=== PATIENT | male | born 1945 | race Caucasian/White ===

== ENCOUNTER → 2019-02-27 | Outpatient (CLI) | payer MEDICARE ==
--- NOTE | 2019-02-27 09:43 | REP ---
Clinical: Hypertension and chronic medical renal disease. Technique: Sheth scale and color Doppler evaluation of the kidneys and renal vasculature using curved array transducer. Findings: The kidneys are essentially normal in contour size and echogenicity and reniform shape without hydronephrosis, nephrolithiasis, cystic or renal mass lesion. Right kidney measures 12.3 x 5.6 x 4.9 cm . Left kidney measures 12.8 x 5.3 x 5.3 cm. Bladder is partially collapsed. Color Doppler evaluation of the renal vasculature demonstrates normal arterial wave patterns, velocities, renal aortic ratios, resistive indices and the acceleration time. No sonographic evidence for renal arterial stenosis noted. Renal vein is patent. Right Kidney: Peak arterial velocity: 97.4 cm/sec . Renal aortic ratio: 0.8 . Resistive indices: 0.55 - 0.64 . Acceleration times: 0.025 - 0.048 . Left kidney: Peak arterial velocity: 124.7 cm/sec . Renal aortic ratio: 1.0 . Resistive indices: 0.65 - 0.69 . Acceleration times: 0.020 - 0.033 . Impression: 1. Normal appearance of the bilateral kidneys. 2. Doppler interrogation demonstrates normal findings without sonographic evidence to suggest renal arterial stenosis. Electronically Signed by Celio Conn MD 02/27/2019 09:35 A
== END ==
LOC: M RAD 08:49
PROVIDERS: ATTEND Internal Medicine Nephrology
DX: I12.9 Hypertensive chronic kidney disease with stage 1 through stage 4 chronic kidney disease, or unspecified chronic kidney disease (principal); N18.9 Chronic kidney disease, unspecified

== ENCOUNTER → 2020-05-27 | Outpatient (REF) | payer MEDICARE | LOC: M LAB REF 14:09 | PROVIDERS: ATTEND Dermatology | DX: L57.0 Actinic keratosis (principal); L57.8 Other skin changes due to chronic exposure to nonionizing radiation ==

== ENCOUNTER → 2021-04-06 | Outpatient (REF) | payer MEDICARE ==
[2021-04-06 18:11] LABS: FREE T3 2.9 PG/ML (2.2-4.0); FREE T4 1.03 NG/DL (0.76-1.46); MAGNESIUM LEVEL 2.2 MG/DL (1.8-2.4); THYROID STIMULATING HORMONE 0.893 uIU/ML (0.358-3.740)
== END ==
LOC: M LAB REF 16:57
PROVIDERS: ATTEND Nurse Practitioner Family
DX: E83.42 Hypomagnesemia (principal); R53.83 Other fatigue

== ENCOUNTER → 2021-07-26 | Outpatient (CLI) | payer MEDICARE ==
[~2021-07-26] MED LIST: E-Z-GAS II EFFERVESCENT PACKET (SODIUM BICARB./CITRIC ACID/SIMETHICONE) As Ordered ONE; E-Z-HD 98% w/w 340GM SUSP BTL As Ordered ONE; E-Z-PAQUE 96% w/w SUSP 176GM BTL As Ordered ONE
--- NOTE | 2021-07-26 16:46 | REP ---
INDICATION: DYSPHAGIA. COMPARISON: None. TECHNIQUE: This procedure was performed under the direct supervision of Dr. Sheth. Images were reviewed with Dr. Sheth. Liquid barium and gas producing granules were given in the erect position as well as liquid barium in the prone oblique positions in order to perform a double contrast esophagram examination. A combination of fluoroscopy, spot films and last image hold technology was utilized. 0.8 minutes of fluoro time was utilized for this procedure. FINDINGS: A single view PA chest x-ray is submitted as a educational psychology professor film. The superior mediastinal structures are midline. The heart size is within normal limits. The lungs are clear. During the oral and pharyngeal stages of deglutition there is aspiration with cough response. In the anterior oropharynx there is a diffuse, micro nodular mucosal pattern. There is irregular mucosa throughout the esophagus which likely represents esophagitis. There is no ofelia ulcer identified. There is no stricture, mucosal ring or hiatal hernia. Gastroesophageal reflux is not demonstrated on this examination. 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 IMPRESSION: 1. There is aspiration with cough response. 2. In the anterior oropharynx there is a diffuse, micro nodular mucosal pattern. Possible lymphoid hyperplasia. 3. There is irregular mucosa throughout the esophagus which likely represents esophagitis. There is no ofelia ulcer identified. 4. 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 <Electronically signed by Reese Mora > 07/26/21 1612 <Electronically signed by Brando Sheth > 07/26/21 1642
== END ==
LOC: M RAD 09:46
PROVIDERS: ATTEND Physician Assistant Medical
DX: R13.10 Dysphagia, unspecified (principal)

== ENCOUNTER → 2021-07-31 | Outpatient (CLI) | payer MEDICARE | LOC: M SLEEP 20:00 | PROVIDERS: ATTEND Physician Assistant | DX: G47.33 Obstructive sleep apnea (adult) (pediatric) (principal) ==

== ENCOUNTER → 2021-09-02 | Outpatient (REF) | payer MEDICARE, BC ==
[2021-09-02 14:14] LABS: APPEARANCE, URINE HAZY (CLEAR); BACTERIA, URINE AUTO NEGATIVE (NEGATIVE); BILIRUBIN, URINE AUTO NEGATIVE (NEGATIVE); BLOOD, URINE BLOOD NEGATIVE (NEGATIVE); COLOR, URINE YELLOW (YELLOW); GLUCOSE, URINE (UA) AUTO NEGATIVE (NEGATIVE); KETONE, URINE AUTO NEGATIVE (NEGATIVE); LEUKOCYTE ESTERASE, URINE AUTO NEGATIVE (NEGATIVE); MUCUS, URINE SMALL (NEGATIVE); NITRITE, URINE AUTO NEGATIVE (NEGATIVE); PROTEIN, URINE AUTO NEGATIVE (NEGATIVE); RBC, URINE AUTO 0 /HPF (0-3); SPECIFIC GRAVITY URINE AUTO 1.012 (1.002-1.035); SQUAMOUS EPITHELIAL CELL UR AU 0 /HPF (0-6); UROBILINOGEN, URINE AUTO 0.2 mg/dL (0.0-2.0); WBC, URINE AUTO 0 /HPF (0-3)
== END ==
LOC: M SMT 13:11
PROVIDERS: ATTEND Nurse Practitioner Women's Health
DX: N40.1 Benign prostatic hyperplasia with lower urinary tract symptoms (principal)

== ENCOUNTER 2022-05-19 11:49 | Day surgery (SDC) | payer MEDICARE ==
[~2022-05-19] VITALS: Ht 165.1 cm; Wt 102.7 kg
[~2022-05-19 11:49] MED LIST changes: +ASPI81CH33 PO; +AZEL1SPR3; +CETI5SOL3 PO; +CHOL125C5 PO; +COLA100C5 PO; +COQ150CH PO; +CULT10CA4 PO; +CVS1TAB PO; -E-Z-GAS II EFFERVESCENT PACKET (SODIUM BICARB./CITRIC ACID/SIMETHICONE) As Ordered ONE; -E-Z-HD 98% w/w 340GM SUSP BTL As Ordered ONE; -E-Z-PAQUE 96% w/w SUSP 176GM BTL As Ordered ONE; +ESOM40CA35; +FOLTTAB9 PO; +LISI5TAB11; +MAGN100T PO; +METO1TAB87; +MUCI600T31 PO; +NS 1,000 ML IV ONE; +OMEG1CAP85 PO; +RA M200C4 PO; +SAW500CA7 PO; +TURM500C PO; +VITA100065 PO; +VITMTA PO
[2022-05-19] MEDS ORDERED: propofoL 200 MG/20 ML VIAL As Ordered ONE ×2 (13:24→14:02)
[2022-05-19] MEDS ORDERED: LIDOCAINE 2% 100MG/5ML SDV (FOR ANES.) As Ordered ONE (13:24)
[2022-05-19 14:50] VITALS: BP 153/87
== END 2022-05-19 14:58 | disposition home or self-care (01) ==
LOC: M OPP 11:49
PROVIDERS: ATTEND Internal Medicine Gastroenterology
DX: Z12.11 Encounter for screening for malignant neoplasm of colon (principal); Z86.010 Personal history of colon polyps; Z80.0 Family history of malignant neoplasm of digestive organs; K57.30 Diverticulosis of large intestine without perforation or abscess without bleeding; K64.4 Residual hemorrhoidal skin tags; K64.8 Other hemorrhoids; K63.5 Polyp of colon; K21.00 Gastro-esophageal reflux disease with esophagitis, without bleeding; K29.70 Gastritis, unspecified, without bleeding; Z79.82 Long term (current) use of aspirin; Z79.52 Long term (current) use of systemic steroids; Z79.899 Other long term (current) drug therapy; Z88.0 Allergy status to penicillin; Z88.7 Allergy status to serum and vaccine; Z91.041 Radiographic dye allergy status; G47.30 Sleep apnea, unspecified; Z80.1 Family history of malignant neoplasm of trachea, bronchus and lung; Z80.51 Family history of malignant neoplasm of kidney

== ENCOUNTER → 2022-06-24 | Outpatient (CLI) | payer MEDICARE ==
[~2022-06-24] MED LIST changes: -NS 1,000 ML IV ONE
== END ==
LOC: M PLARAD 13:28
PROVIDERS: ATTEND Physician Assistant
DX: M51.16 Intervertebral disc disorders with radiculopathy, lumbar region (principal)

== ENCOUNTER 2023-08-07 12:20 | Day surgery (SDC) | payer BC, MEDICARE ==
[~2023-08-07] VITALS: Ht 170.2 cm; Wt 105.3 kg
[~2023-08-07 12:20] MED LIST changes: -CVS1TAB PO; +ERYT5OIN25; -ESOM40CA35; +ESOM40CA35 PO; +FURO20TA2 PO; +GLUC1TAB PO; +LISI5TAB11 PO; -METO1TAB87; +METO1TAB87 PO; +NS 1,000 ML IV ONE
[2023-08-07] MEDS ORDERED: LIDOCAINE 2% 100MG/5ML SDV (FOR ANES.) As Ordered ONE (14:13)
[2023-08-07] MEDS ORDERED: propofoL 200 MG/20 ML VIAL As Ordered ONE (14:13)
[2023-08-07] MEDS ORDERED: fentaNYL 100 MCG/2 ML INJECTION As Ordered ONE (14:34)
[2023-08-07] MEDS ORDERED: ONDANSETRON 4MG 2ML VIAL As Ordered ONE (14:35)
[2023-08-07] MEDS ORDERED: CETACAINE SPRAY 5GM As Ordered ONE (14:42)
[2023-08-07 15:02] VITALS: TEMP 96.8
[2023-08-07 15:26] VITALS: BP 118/64; O2SAT 95
== END 2023-08-07 15:40 | disposition home or self-care (01) ==
LOC: M OPP 12:20
PROVIDERS: ATTEND Internal Medicine Gastroenterology
DX: K22.2 Esophageal obstruction (principal); K31.89 Other diseases of stomach and duodenum; I10 Essential (primary) hypertension; G47.30 Sleep apnea, unspecified; Z79.82 Long term (current) use of aspirin; Z79.899 Other long term (current) drug therapy; Z87.891 Personal history of nicotine dependence; Z90.49 Acquired absence of other specified parts of digestive tract; Z88.0 Allergy status to penicillin; Z88.8 Allergy status to other drugs, medicaments and biological substances; Z91.041 Radiographic dye allergy status
CPT/HCPCS: 43249; J2405; J3010

== ENCOUNTER → 2024-08-07 | Outpatient (REF) | payer MEDICARE ==
[~2024-08-07] MED LIST changes: -NS 1,000 ML IV ONE; +OMEG-28 PO; -OMEG1CAP85 PO
[2024-08-07 18:09] LABS: APPEARANCE, URINE HAZY (CLEAR); BACTERIA, URINE AUTO NEGATIVE (NEGATIVE); BILIRUBIN, URINE AUTO NEGATIVE (NEGATIVE); BLOOD, URINE BLOOD NEGATIVE (NEGATIVE); COLOR, URINE AMBER (YELLOW); GLUCOSE, URINE (UA) AUTO NEGATIVE (NEGATIVE); KETONE, URINE AUTO TRACE mg/dL (NEGATIVE); LEUKOCYTE ESTERASE, URINE AUTO NEGATIVE (NEGATIVE); MUCUS, URINE SMALL (NEGATIVE); NITRITE, URINE AUTO NEGATIVE (NEGATIVE); PROTEIN, URINE AUTO NEGATIVE (NEGATIVE); RBC, URINE AUTO 0 /HPF (0-3); SPECIFIC GRAVITY URINE AUTO 1.027 (1.002-1.035); SQUAMOUS EPITHELIAL CELL UR AU 0 /HPF (0-6); UROBILINOGEN, URINE AUTO 0.2 mg/dL (0.0-2.0); WBC, URINE AUTO 1 /HPF (0-3)
== END ==
LOC: M SMT 17:09
PROVIDERS: ATTEND Urology
DX: R39.9 Unspecified symptoms and signs involving the genitourinary system (principal)